=== PATIENT | female | born 1965 | race Two or more races ===

== ENCOUNTER 2020-06-04 08:53 | Day surgery (SDC) | payer MEDICAID, SELFPAY ==
[2020-06-01 14:25] VITALS: BMI 49.9
--- NOTE | 2020-06-03 09:59 | P.CONAN_ITS ---
HPI - Anesthesia Eval Consult details Narrative: 54yo F for Upper Endoscopy and Colonoscopy [facility] Past Medical History Medical History Anemia Anxiety Asthma Constipation GERD (gastroesophageal reflux disease) Hx of alopecia Hx of renal calculi Surgical History Surgical History Hx of section Hx of foot surgery Social History Social History Alcohol intake: current Alcohol intake frequency: a few times a month Alcohol type: wine Smoking Status: Never smoker Substance Use Type: Marijuana Meds Allergies Allergy/AdvReac Type Severity Reaction Status Date / Time No Known Allergies Allergy Mild NOT Unverified 06/01/20 14:20 APPLICABLE Home Medications Medication Instructions Recorded Confirmed Type albuterol sulfate [ProAir HFA] 2 puff INHALATION Q4-6H PRN 06/01/20 06/11/20 History ferrous sulfate [iron] 325 mg PO DAILY 06/01/20 06/11/20 History fluticasone propionate [Flovent] 1 puff INHALATION Q12H 06/01/20 06/11/20 History loratadine 10 mg PO DAILY 06/01/20 06/11/20 History losartan 25 mg PO DAILY 06/01/20 06/11/20 History omeprazole 20 mg PO BID 06/01/20 06/11/20 History Exam Exam Date and Time: June 03, 2020 0959 Height,Weight and Vital Signs: Height 5 ft 5 in Weight 136.078 kg Pertinent Lab Results Pertinent Lab Results: Laboratory Tests 01/30/20 01/30/20 13:41 13:41 WBC 4.9 Hgb 10.2 L Hct 34.1 L Plt Count 326 Sodium 141 Potassium 4.5 D Chloride 106 BUN 7 L Creatinine 0.63 Assessment and Plan Assessment Anesthesia Assessment: Chart Reviewed
[2020-06-04] VITALS (7 sets, daily range): BP systolic 111–153; BP diastolic 74–109; PULSE 87–100; RESP 18; TEMP 36.2–36.8; O2SAT 97–100
--- NOTE | 2020-06-04 09:54 | HO.ANESPROP2 ---
[facility] Past Medical History Medical History Anemia Anxiety Asthma Constipation GERD (gastroesophageal reflux disease) Hx of alopecia Hx of renal calculi Surgical History Surgical History Hx of section Hx of foot surgery Social History Social History Alcohol intake: current Alcohol intake frequency: a few times a month Alcohol type: wine Smoking Status: Never smoker Substance Use Type: Marijuana Advance Directives: No Advance Directives Information Provided: No Advance Directives on File: No Meds Allergies Allergy/AdvReac Type Severity Reaction Status Date / Time No Known Allergies Allergy Mild NOT Unverified 06/01/20 14:20 APPLICABLE Home Medications Medication Instructions Recorded Confirmed Type albuterol sulfate [ProAir HFA] 2 puff INHALATION Q4-6H PRN 06/01/20 06/01/20 History ferrous sulfate [iron] 325 mg PO DAILY 06/01/20 06/01/20 History fluticasone propionate [Flovent] 1 puff INHALATION Q12H 06/01/20 06/01/20 History loratadine 10 mg PO DAILY 06/01/20 06/04/20 History losartan 25 mg PO DAILY 06/01/20 06/04/20 History omeprazole 20 mg PO BID 06/01/20 06/04/20 History Exam Exam Date and Time: June 04, 2020 0954 Height,Weight and Vital Signs: Height 5 ft 5 in Weight 136.078 kg Last Vital Signs Temp 97.1 F 06/04/20 09:49 Pulse 87 06/04/20 09:49 Resp 18 06/04/20 09:49 BP 144/81 H 06/04/20 09:49 Pulse Ox 97 06/04/20 09:49
--- NOTE | 2020-06-04 10:06 | MHC.SHP ---
Pre-Procedural Eval Section B Chief Complaint: ANEMIA Relevant Family History (Specify if Yes): No Relevant Social History: None Present Medications: see Short Stay Collaborative assessment Medical History: Significant History (Anemia Anxiety Asthma Constipation GERD (gastroesophageal reflux disease) Hx of alopecia Hx of renal calculi) History of Previous Operations: Relevant previous surgery/procedure and date(s) (foot surgery, c section) Allergies: Allergies Allergy/AdvReac Type Severity Reaction Status Date / Time No Known Allergies Allergy Mild NOT Unverified 06/01/20 14:20 APPLICABLE Review of Systems Sugical H&P ROS: Negative: Constitution, Cardiovascular, Respiratory, Neurological, Psychiatric, Hem-Onc, Allergic/Immunologic, Gastrointestinal, Genitourinary, Musculoskeletal, Integumentary, Endocrine and Eyes/Ears/Nose/Throat Exam Surgical H&P Exam: Normal: HEENT, Normal: Heart, Normal: Lungs, Normal: Extremities, Normal: Abdomen, Normal: Skin and Normal: Neurological Plan Diagnosis/Plan: Unchanged Patient has been examined and remains a candidate for the planned procedure
--- NOTE | 2020-06-04 10:07 | PM.OP ---
Brief Operative Note Date of Service: 06/04/20 Pre-op diagnosis: anemia Post-op diagnosis: same Procedure: see op note Surgeon: Brijesh Jasso MD Anesthesia: MAC Estimated blood loss (mL): 0 Condition: stable Disposition: PACU
--- NOTE | 2020-06-04 10:08 | P.OP_ITS ---
Operative Note Operative Note Date of Service: 06/04/20 Narrative: Operative Information Procedure Description: EGD, Colonoscopy FLEXIBLE TRANSORAL UPPER GASTROINTESTINAL ENDOSCOPY AND COLONOSCOPY PROCEDURE NOTE UPPER ENDOSCOPY Consent: Indications for the procedure and potential complications of bleeding, perforation, reaction to medications and missed diagnosis were discussed with the patient and informed consent was obtained. Instrument: Olympus GIF H 190 J mid size upper endoscope Monitoring: Vital signs and clinical assessment, continuous EKG monitoring, Pulse oximetry, Carbon Dioxide monitoring and blood pressure monitoring were done throughout the procedure. Procedure: The patient was placed in the left lateral decubitis position and pre-procedure medications were administered and a bite block was placed. The endoscope was inserted into the mouth and advanced under direct vision to the third part of duodenum. A careful inspection was made as the upper endoscope was withdrawn including a retroflexed examination of the proximal stomach; Findings and interventions are described below. Findings: Larynx:normal Esophagus: GE junction at 36 cm, diaphragm hiatus at 33 cm consistent with 3 cm sliding hiatal hernia, normal mucosa-random bx taken Stomach: Patchy erythema. Biopsies were obtained. Grade 2 flap valve on retroflexed examination of the cardia. Duodenum: Normal bulb and descending duodenum, bx taken Intervention: Biopsies as noted above COLONOSCOPY Instrument: Olympus variable stiffness pediatric scope 190L Colonoscopy Monitoring: Vital signs and clinical assessment, continuous EKG monitoring, Pulse oximetry, Carbon Dioxide monitoring and blood pressure monitoring were done throughout the procedure. Colon withdrawal time was 10 minutes. Procedure: The patient was placed in the left lateral decubitis position and pre-procedure medications were administered. After a digital rectal examination of the ano-rectum, the video colonoscope was inserted into the rectum and advanced through the colon to the cecum/TI. The colonoscope was slowly withdrawn in a retrograde panoramic fashion and the colon mucosa was carefully examined including a retroflexed view of the rectum. Findings and interventions are described below. Procedure Difficulty: Findings: Terminal Ileum-normal Cecum:normal Ascending Colon: normal Transverse Colon -normal Descending Colon:normal Sigmoid Colon: 3-4 mm diminutive polyp biopsy excised, there was also a 12-15 mm semi pedunculated polyp noted removed with cold snare, the head of the polyp was red and inflammed possibly had been bleeding recently Rectum: Retroflexion with small to moderate sized internal hemorrhoids, grade I Anorectum - normal Colon preparation: Carver Bowel Preparation Scale Right colon; 3 Transverse colon: 3 Left colon; 3 (0 = Unprepared colon segment with mucosa not seen due to solid stool that cannot be cleared. 1 = Portion of mucosa of the colon segment seen, but other areas of the colon segment not well seen due to staining, residual stool and/or opaque liquid. 2 = Minor amount of residual staining, small fragments of stool and/or opaque liquid, but mucosa of colon segment seen well. 3 = Entire mucosa of colon segment seen well with no residual staining, small fragments of stool or opaque liquid) Impression and Post Procedure Diagnosis: Endoscopy Findings: gastritis hiatal hernia Colonoscopy Findings: polyps internal hemorrhoids Plan: Await Pathology results Repeat Colonoscopy in 3-5 years if adenomatous polyps or earlier if clinically indicated, otherwise repeat 10 years if benign High fiber diet leaflet avoid straining at stool, epsom salts and sitz bath, anusol supps or cream prn if anemia persists or worsens and bx neg then capsule endoscopy Above findings were reviewed with the patient and relevant handouts were provided if indicated.
--- NOTE | 2020-06-04 10:16 | P.CONAN_ITS ---
[facility] Past Medical History Medical History Anemia Anxiety Asthma Constipation GERD (gastroesophageal reflux disease) Hx of alopecia Hx of renal calculi Surgical History Surgical History Hx of section Hx of foot surgery Social History Social History Alcohol intake: current Alcohol intake frequency: a few times a month Alcohol type: wine Smoking Status: Never smoker Substance Use Type: Marijuana Advance Directives: No Advance Directives Information Provided: No Advance Directives on File: No Meds Allergies Allergy/AdvReac Type Severity Reaction Status Date / Time No Known Allergies Allergy Mild NOT Unverified 06/01/20 14:20 APPLICABLE Home Medications Medication Instructions Recorded Confirmed Type albuterol sulfate [ProAir HFA] 2 puff INHALATION Q4-6H PRN 06/01/20 06/01/20 History ferrous sulfate [iron] 325 mg PO DAILY 06/01/20 06/01/20 History fluticasone propionate [Flovent] 1 puff INHALATION Q12H 06/01/20 06/01/20 History loratadine 10 mg PO DAILY 06/01/20 06/04/20 History losartan 25 mg PO DAILY 06/01/20 06/04/20 History omeprazole 20 mg PO BID 06/01/20 06/04/20 History Exam Exam Date and Time: June 04, 2020 1016 Height,Weight and Vital Signs: Height 5 ft 5 in Weight 136.078 kg Last Vital Signs Temp 97.1 F 06/04/20 09:49 Pulse 87 06/04/20 09:49 Resp 18 06/04/20 09:49 BP 144/81 H 06/04/20 09:49 Pulse Ox 97 06/04/20 09:49 Airway Mallampati Class: II TM Dist: >3cm Neck ROM: Limited Heart: RRR Lungs: CTA Assessment and Plan Assessment Anesthesia Assessment: Anesthesia Plan Discussed and Chart Reviewed Final Anesthetic Review NPO: Yes ASA Class: III Final Preanesthetic Review: Meds/Allgs Chart Reviewed, Consent Obtained/Reviewed and Anes Risks/Benef Reviewed Patient Risk: Intermediate Procedure Risk: Intermediate Anesthetic Plan Anesthetic Plan: MAC: Disposition: Standard PACU
== END 2020-06-04 13:10 | disposition home or self-care (01) ==
PROVIDERS: PCP Student in an Organized Health Care Education/Training Program; Visit Provider Internal Medicine Gastroenterology
PROC: (CPT 45385; principal; 2020-06-04 09:30)
DX: D64.9 Anemia, unspecified (principal); D12.5 Benign neoplasm of sigmoid colon; K64.0 First degree hemorrhoids; K29.50 Unspecified chronic gastritis without bleeding; K44.9 Diaphragmatic hernia without obstruction or gangrene; K21.9 Gastro-esophageal reflux disease without esophagitis; Z79.899 Other long term (current) drug therapy
CPT/HCPCS: 45385; 45380; 43239; 88305; 88342; J1200; J2250; J2405; J2765

== ENCOUNTER 2020-06-05 14:07 | Outpatient (REF) | payer MEDICAID, SELFPAY ==
--- NOTE | 2020-06-05 | MM_ITS ---
EXAMINATION: BONE DENSITOMETRY CLINICAL INDICATION: Pathological fracture, other site, initial encounter for fracture. Screening for osteoporosis. COMPARISON: None (current study represents initial baseline exam). TECHNIQUE: Using a [employer] DXA System (software version: 13.1) manufactured by [employer], dual-energy x-ray absorptiometry was performed of the lumbar spine and left hip. The images are of good technical quality. Summary results are attached. FINDINGS: AP SPINE L1-L4: BMD 1.149 g/cm2, Z-score -0.6, T-score -0.3, normal. LEFT FEMUR, NECK: BMD 0.892 g/cm2, Z-score -0.7, T-score -1.1, osteopenia. LEFT FEMUR, TOTAL: BMD 1.048 g/cm2, Z-score 0.2, T-score 0.3, normal. IDENTIFIED RISK FACTORS: Recurrent falls, history of fracture (adult), menopause. HISTORY OF FRACTURE: Right ankle, left foot. MEDICATIONS: None listed. MM/XR DEXA axial skeleton IMPRESSION: 1. DIAGNOSIS: Osteopenia based on the lowest T-score value of -1.1 in the femoral neck applying World Health Organization criteria. 2. 10-YEAR FRACTURE RISK PREDICTION, FRAX: Major osteoporotic fracture (clinical spine, forearm, hip or shoulder) 2.7%. Hip fracture 0.1%. 3. Treatment Recommendations: NOF guidelines recommend consideration for treatment in postmenopausal women and men age 50 and older presenting with the following: -A hip or vertebral (clinical or morphometric) fracture. -T-score less than or equal to -2.5 at the femoral neck or spine after appropriate evaluation to exclude secondary causes. -Low bone mass at the hip or spine and a 10-year fracture probability by FRAX of greater than or equal to 3% for hip fracture or greater than or equal to 20% for major osteoporotic fracture based on the [place] adapted WHO algorithm. 4. Other Recommendations: All treatment decisions require clinical judgment and consideration of individual patient factors, including patient preferences, comorbidities, previous drug use, risk factors not captured in the FRAX model (e.g. frailty, falls, vitamin D deficiency, increased bone turnover, interval significant decline in bone density) and possible under or overestimation of fracture risk by FRAX. Additional medical evaluation for secondary cause of low bone mineral density may be appropriate. FUTURE SCAN RECOMMENDATION: People with diagnosed cases of osteoporosis or at high risk for fracture should have regular bone mineral density tests. For patients eligible for Medicare, routine testing is allowed once every 2 years. The testing frequency can be increased to one year for patients who have rapidly progressing disease, those who are receiving or discontinuing medical therapy to restore bone mass, or have additional risk factors.
--- NOTE | 2020-06-05 | MM_ITS ---
EXAMINATION: MM SCREENING DIGITAL BREAST TOMOSYNTHESIS, BILATERAL CLINICAL INFORMATION: Screening. Asymptomatic. The lifetime risk of breast cancer based on the Tyrer-Cuzick Model is 5.6%. COMPARISON: Mammography: January 12, 2012 and studies dating back to February 26, 2008 TECHNIQUE: Digital breast tomosynthesis is performed in both the craniocaudal and mediolateral oblique views along with computer-aided detection (CAD). Synthesized 2D images are generated from the tomosynthesis. FINDINGS: The breasts are heterogeneously dense, which may obscure small masses (ACR BI-RADS breast composition Category c). There are no significant masses, abnormal calcifications, or other abnormalities. There are multiple bilateral circumscribed densities with multiple cysts being shown previously. There is multiplicity and bilaterality of calcifications. MM/MM tomosynthesis screening BI IMPRESSION: No specific mammographic evidence to suggest malignancy. Numerous cysts. ASSESSMENT: BI-RADS 2: Benign RECOMMENDATION: Routine annual mammography screening. This patient's information was entered into a reminder system with a target due date for their next mammogram.
== END 2020-06-05 14:08 | disposition home or self-care (01) ==
LOC: HO.MAMMO 14:07
PROVIDERS: PCP Student in an Organized Health Care Education/Training Program; Visit Provider Student in an Organized Health Care Education/Training Program
DX: Z12.31 Encounter for screening mammogram for malignant neoplasm of breast (principal); Z13.820 Encounter for screening for osteoporosis; N95.1 Menopausal and female climacteric states; Z87.311 Personal history of (healed) other pathological fracture; Z91.81 History of falling
CPT/HCPCS: 77063; 77067; 77080

== ENCOUNTER → 2020-06-11 08:38 | Outpatient (BNVA) | payer MEDICAID, SELFPAY | PROVIDERS: PCP Student in an Organized Health Care Education/Training Program; Referring Provider Student in an Organized Health Care Education/Training Program; Visit Provider Physician Assistant | DX: Z76.89 Persons encountering health services in other specified circumstances (principal) ==

== ENCOUNTER 2020-08-24 11:15 | Outpatient (REF) | payer MEDICAID, SELFPAY | END 2020-08-24 11:16 | disposition home or self-care (01) | LOC: HO.LAB 11:15 | PROVIDERS: Visit Provider Internal Medicine | DX: Z20.822 Contact with and (suspected) exposure to COVID-19 (principal) | CPT/HCPCS: 36415; C9803; U0003; U0005 ==

== ENCOUNTER 2020-11-11 13:31 | Emergency (ER) | payer MEDICAID, SELFPAY ==
[2020-11-11 13:47] VITALS: BP 149/83; PULSE 89; RESP 18; TEMP 36.4; O2SAT 98; BMI 34.9
--- NOTE | 2020-11-11 15:47 | ED.GENADULT ---
HPI - General Adult General Chief complaint: Extremity Injury, Lower Stated complaint: R ELBOW PAIN Time Seen by Provider: 11/11/20 14:12 Source: patient Mode of arrival: ambulatory History of Present Illness HPI narrative: 55-year-old female with a past medical history of anemia, anxiety, asthma, constipation, GERD, presenting to the ED complaining of acute on chronic right wrist pain due to carpal tunnel syndrome. Reports pain became unbearable today. Admits to [place] of [place]pal [place] sd[place] [facility] [place] was diagnosed with the same on the RUE, however has not followed up with surgeon/orthopedics. Does wear braces at home at night, denies taking any pain medication. Reports tingling in fingertips and pain worse with hand/wrist movement. Denies weakness, fever, chills, trauma/injury, swelling, CP/SPB Related Data Home Medications Medication Instructions Recorded Confirmed albuterol sulfate [ProAir HFA] 2 puff INHALATION Q4-6H PRN 06/01/20 06/11/20 ferrous sulfate [iron] 325 mg PO DAILY 06/01/20 06/11/20 fluticasone propionate [Flovent] 1 puff INHALATION Q12H 06/01/20 06/11/20 loratadine 10 mg PO DAILY 06/01/20 06/11/20 losartan 25 mg PO DAILY 06/01/20 06/11/20 omeprazole 20 mg PO BID 06/01/20 06/11/20 Previous Rx's Medication Instructions Recorded acetaminophen [Tylenol Extra 500 mg PO Q6H PRN #20 tab 11/11/20 Strength] lidocaine [Lidoderm] 1 patch TOPICAL DAILY PRN #30 ea 11/11/20 MDD remove after 12 hours naproxen 500 mg PO BID PRN 10 Days #20 tab 11/11/20 Allergies Allergy/AdvReac Type Severity Reaction Status Date / Time No Known Allergies Allergy Mild NOT Verified 11/11/20 13:49 APPLICABLE Review of Systems Review of Systems: Constitutional: No Fever, No Chills Cardiovascular: No Chest Pain, No SOB Musculoskeletal: +joint pain, No Myalgias, No Joint Swelling Skin: No Skin Lesions, No rash Neuro: No Weakness, + Numbness, + Paresthesias Yes all other systems are reviewed and are negative PMFSH Past Medical History Attestation statement: The following information was validated with the patient. Medical History Anemia Anxiety Asthma Constipation GERD (gastroesophageal reflux disease) Hx of alopecia Hx of renal calculi Surgical History Hx of section Hx of foot surgery Social History Social History Alcohol intake: current Alcohol intake frequency: a few times a month Alcohol type: wine Smoking Status: Never smoker Substance Use Type: Marijuana Advance Directives: No Advance Directives Information Provided: No Patient : No Physical Exam Vital Signs: Vital Signs: Last Vital Signs Temp 97.5 F 11/11/20 13:47 Pulse 89 11/11/20 13:47 Resp 18 11/11/20 13:47 BP 149/83 H 11/11/20 13:47 Pulse Ox 98 11/11/20 13:47 Body Mass Index 34.9 Const: General: cooperative and healthy appearing Orientation/consciousness: patient oriented x3 Limitations: no limitations HENMT: Head: Yes normal to inspection Ears: hearing grossly normal bilaterally General nose exam: Normal external nose present Face and sinus: Yes normal facial exam Eyes: General: appearance normal, both eyes and all related structures EOM: EOMs intact bilaterally Neck: Neck: Yes normal visual inspection and Yes no meningeal signs Resp: Effort & Inspection: normal respiratory effort Cardio: Rate: regular rate Peripheral pulses: radial pulses present Skin: Rashes: no rashes Wounds: no wounds Neuro: General: patient oriented x3 and no meningeal signs Gait exam (Neuro): Normal gait present Extrem: Other: Right wrist with mild tenderness to palpation. No appreciable deformity/swelling or erythema. FROM intact to digits and wrist. NV intact General: Yes normal to inspection Medical Decision Making MDM Narrative Medical decision making narrative: 55-year-old female with a past medical history of anemia, anxiety, asthma, constipation, GERD, presenting to the ED complaining of acute on chronic right wrist pain due to carpal tunnel syndrome. On exam VSS, NAD/well-appearing, systems likely from carpal tunnel syndrome as patient with known diagnosis. Unlikely fracture/dislocation or ACS Discharge Plan Discharge Clinical Impression: Acute carpal tunnel syndrome Qualifiers: Laterality: right Qualified Code(s): G56.01 - Carpal tunnel syndrome, right upper limb Patient Disposition: Home, Self-Care Instructions: Carpal Tunnel Surgery (DC) Additional Instructions: You likely carpal tunnel syndrome, it is important for you to follow-up with an orthopedic/Plastic surgery in. Wear braces at home at night especially during sleep. Naproxen as an anti-inflammatory/pain medication, take with food. Lidoderm patches or numbing patches, apply to painful area. You may apply cyst and heat. If pain persists or worsens/becomes unbearable please return to the ED, others follow-up with her doctor Es probable que tenga s?ndrome del t?leticia carpiano, es importante que realice un seguimiento con juan francisco cirug?a ortop?dica / pl?stica. Use aparatos ortop?dicos en casa por la noche, especialmente charley el chloe?o. El naproxeno tali medicamento antiinflamatorio / analg?sico, t?arboleda con alimentos. Los parches de Lidoderm o los parches adormecedores se aplican en el ?lucila dolorida. Puede aplicar quiste y calor. Si el dolor persiste o empeora / se vuelve insoportable, regrese al servicio de urgencias, otros hacen un seguimiento con murphy m?dico. Prescriptions: New acetaminophen [Tylenol Extra Strength] 500 mg tablet 500 mg PO Q6H PRN (Reason: pain or fever) Qty: 20 RF: 0 lidocaine [Lidoderm] 5 % adhesive patch,medicated 1 patch topical DAILY MDD remove after 12 hours PRN (Reason: pain) Qty: 30 RF: 0 naproxen 500 mg tablet 500 mg PO BID PRN (Reason: pain) 10 Days Qty: 20 RF: 0 No Action losartan 25 mg Tablet 25 mg PO DAILY RF: 0 albuterol sulfate [ProAir HFA] 90 mcg/actuation Hfa Aerosol Inhaler 2 puff INHALATION Q4-6H PRN (Reason: Shortness Of Breath Or Wheezing) RF: 0 loratadine 10 mg Tablet 10 mg PO DAILY RF: 0 Flovent 110 mcg/actuation Hfa Aerosol Inhaler 1 puff INHALATION Q12H RF: 0 omeprazole 20 mg Tablet,Delayed Release (Dr/Ec) 20 mg PO BID RF: 0 ferrous sulfate [iron] 325 mg (65 mg iron) Tablet 325 mg PO DAILY RF: 0 Referrals: Beka Palmer PA-C [Physician Ink Grinder] - 1 week Stand Alone Forms: Work/School Release Print Language: Mohawk
== END 2020-11-11 16:14 | disposition home or self-care (01) ==
PROVIDERS: Emergency Provider Emergency Medicine Emergency Medical Services
DX: G56.01 Carpal tunnel syndrome, right upper limb (principal); M25.531 Pain in right wrist
CPT/HCPCS: 99283

== ENCOUNTER 2022-04-07 13:21 | Emergency (ER) | payer MEDICAID, SELFPAY ==
[2022-04-07 15:12] VITALS: BP 175/91; PULSE 84; RESP 20; TEMP 36.6; O2SAT 99; BMI 34.9
== END 2022-04-08 00:53 | disposition left against medical advice (07) ==
LOC: HO.ED 04-08 00:36
PROVIDERS: Emergency Provider Emergency Medicine
DX: M54.50 Low back pain, unspecified (principal)
CPT/HCPCS: 99281

== ENCOUNTER 2022-06-28 09:59 | Emergency (ER) | payer MEDICAID, SELFPAY ==
[2022-06-28 10:52] VITALS: BP 178/94; PULSE 91; RESP 18; TEMP 36.6; O2SAT 98; BMI 38.8
[2022-06-28 11:19] LABS: Appearance Urine Clear; Color Urine Yellow; Glucose Urine UA Negative (Negative); Leukocyte Esterase Urine Negative (Negative); Nitrite Urine Negative (Negative); PH 7.5 (5.0-9.0); Specific Gravity - Urine <= 1.005 (1.005-1.025); Urine Blood Negative (Negative); Urine Ketones Negative (Negative); Urine Protein Negative (Neg-Trace)
--- NOTE | 2022-06-28 12:29 | ED.BACK ---
HPI - Back Pain/Injury General Chief Complaint: Back Pain/Injury Stated Complaint: Lower back pain Time Seen by Provider: 06/28/22 12:28 Source: patient Mode of arrival: ambulatory Limitations: no limitations History of Present Illness HPI Narrative: 57 yo female with history of obesity and chronic back pain for the last year presents to the ER for worsening pain for the last few days. 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 She states the pain is across her entire lower back and radiates up her back with movement. She states the pain morrell and is sharp. She denies any urinary symptoms, no numbness or weakness in the legs. She has not seen her PCP in a long time, she has not been available per patient. MD elicited complaint: back pain Pertinent past history: prior back pain Onset (ago): year(s) (1) Timing: progressively worsening Severity: severe Similar Symptoms Previously: Yes Quality: burning Location: right lower back and left lower back Radiation: none Exacerbating factors: movement Relieving factors: sitting upright Context: while lifting, turning/twisting and bending Associated symptoms: denies other symptoms Treatments prior to arrival: NSAIDS Work related injury: Yes Related Data Home Medications Medication Instructions Recorded Confirmed albuterol sulfate 90 mcg/actuation 2 puff inhalation Q4-6H PRN 06/01/20 06/11/20 aerosol inhaler (ProAir HFA) Shortness Of Breath Or Wheezing ferrous sulfate 325 mg (65 mg 325 mg PO DAILY 06/01/20 06/11/20 iron) tablet (iron) fluticasone propionate 110 1 puff inhalation Q12H 06/01/20 06/11/20 mcg/actuation HFA aerosol inhaler loratadine 10 mg tablet 10 mg PO DAILY 06/01/20 06/11/20 losartan 25 mg tablet 25 mg PO DAILY 06/01/20 06/11/20 omeprazole 20 mg tablet,delayed 20 mg PO BID 06/01/20 06/11/20 release Previous Rx's Medication Instructions Recorded acetaminophen 500 mg tablet 500 mg PO Q6H PRN pain or fever 11/11/20 (Tylenol Extra Strength) #20 tabs lidocaine 5 % topical patch 1 patch topical DAILY PRN pain #30 11/11/20 (Lidoderm) ea naproxen 500 mg tablet 500 mg PO BID PRN pain 10 days #20 11/11/20 tabs Allergies Allergy/AdvReac Type Severity Reaction Status Date / Time No Known Allergies Allergy Mild NOT Verified 11/11/20 13:49 APPLICABLE Review of Systems Review of Systems: Constitutional: No Fever, No Chills Cardiovascular: No Chest Pain, No SOB Respiratory: No Cough, No Sputum Gastrointestinal: No Nausea, No Vomiting, No Diarrhea, No abdominal Pain Genitourinary: No Dysuria, No Urinary Frequency, No Hematuria Musculoskeletal: + joint pain, + Myalgias Skin: No Skin Lesions, No rash Neuro: No Weakness, No Numbness, No Dizziness, No Headache Psych: + Anxiety/Panic, + Depression Heme/Lymph: No Bruising, No Lymphadenopathy PMFSH Past Medical History Medical History Anemia Anxiety Asthma Constipation GERD (gastroesophageal reflux disease) Hx of alopecia Hx of renal calculi Surgical History Hx of section Hx of foot surgery Social History Social History Alcohol intake: current Alcohol intake frequency: a few times a month Alcohol type: wine Substance Use Type: Marijuana Advance Directives: No Advance Directives Information Provided: No Physical Exam Vital Signs: Vital Signs: Last Vital Signs Temp 97.8 F 06/28/22 10:52 Pulse 91 06/28/22 10:52 Resp 18 06/28/22 10:52 BP 178/94 H 06/28/22 10:52 Pulse Ox 98 06/28/22 10:52 O2 Del Method 06/28/22 10:52 BMI result Body Mass Index 38.8 Appearance: Alert. Oriented X3. No acute distress. HEENT: normal inspection CVS: Normal heart rate and rhythm. Pulses normal. Respiratory: No respiratory distress. Skin: Skin warm and dry. Normal skin color. Normal skin turgor. No rashes. Back: normal inspection, soft tissue tenderness across the entire lumbar area and paraspinous muscle tenderness. Extremities: normal inspection, normal ROM Neuro: Oriented X 3. No motor deficit. No sensory deficit. Normal DTRS, steady gait Course Course Course Narrative: 57 yo female presenting with acute on chronic low back pain. No red flag symptoms of LBP. Exam with soft tissue tenderness and spasm up into the paraspinous muscles. no midline tenderness. No urinary symptoms. UA negative. Will treat for muscular pain, have her call her PCP for outpatient follow up, would likely benefit from PT. 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 Medical Decision Making Lab Data Labs: Lab Results 06/28/22 Range/Units 11:07 Urine Color Yellow Urine Appearance Clear Urine pH 7.5 (5.0-9.0) Ur Specific Elizabeth <= 1.005 (1.005-1.025) Urine Protein Negative (Neg-Trace) mg/dL Urine Glucose (UA) Negative (Negative) mg/dL Urine Ketones Negative (Negative) mg/dL Urine Blood Negative (Negative) Urine Nitrite Negative (Negative) Ur Leukocyte Esterase Negative (Negative) Discharge Plan Discharge Clinical Impression: Chronic bilateral low back pain Patient Disposition: Home, Self-Care Instructions: Chronic Back Pain (DC), Lower Back Exercises (ED) Additional Instructions: No bending, lifting or twisting. Use ice several times per day for 20 minutes at a time for the next 48 hours and then change to heat. Take medications as prescribed to help with pain and discomfort. Follow up with your Primary Care Doctor this week. If your pain worsens, if you develop new numbness, tingling, weakness, loss of function or incontinence call 911 or come back to the ER right away for evaluation. Sin doblar, levantar o torcer. Use hielo varias veces al d?a charley 20 minutos a la vez charley las pr?ximas 48 horas y luego cambie a calor. Chili los medicamentos seg?n lo prescrito para ayudar con el dolor y la incomodidad. Cr un seguimiento con murphy m?dico de atenci?n primaria esta semana. Si murphy dolor empeora, si desarrolla un nuevo entumecimiento, hormigueo, debilidad, p?rdida de funci?n o incontinencia, llame al 911 o regrese a la nakia de emergencias de inmediato para juan francisco evaluaci?n. Prescriptions: No Action losartan 25 mg Tablet 25 mg PO DAILY albuterol sulfate [ProAir HFA] 90 mcg/actuation Hfa Aerosol Inhaler 2 puff INHALATION Q4-6H PRN (Reason: Shortness Of Breath Or Wheezing) loratadine 10 mg Tablet 10 mg PO DAILY Flovent 110 mcg/actuation Hfa Aerosol Inhaler 1 puff INHALATION Q12H omeprazole 20 mg Tablet,Delayed Release (Dr/Ec) 20 mg PO BID ferrous sulfate [iron] 325 mg (65 mg iron) Tablet 325 mg PO DAILY acetaminophen [Tylenol Extra Strength] 500 mg tablet 500 mg PO Q6H PRN (Reason: pain or fever) Qty: 20 0RF lidocaine [Lidoderm] 5 % adhesive patch,medicated 1 patch topical DAILY MDD remove after 12 hours PRN (Reason: pain) Qty: 30 0RF Rx Instructions: leave on most painful area for up to 12 hrs naproxen 500 mg tablet 500 mg PO BID PRN (Reason: pain) 10 Days Qty: 20 0RF Referrals: Lindsay Serrano MD [Primary Care Provider] - (acute on chronic low back pain) Stand Alone Forms: Work/School Release Interventions: ED Discharge Assessment Last Done: 06/28/22 13:46 Discharge Date/Time: 06/28/22 13:48 Print Language: Maltese
== END 2022-06-28 13:48 | disposition home or self-care (01) ==
PROVIDERS: Emergency Provider Student in an Organized Health Care Education/Training Program; PCP Student in an Organized Health Care Education/Training Program
DX: M54.50 Low back pain, unspecified (principal); Z79.899 Other long term (current) drug therapy
CPT/HCPCS: 81003; 99283

== ENCOUNTER 2023-02-02 09:57 | Outpatient (REF) | payer MEDICAID, SELFPAY ==
[2023-02-02 15:13] LABS: Alanine Aminotransferase 19 U/L (0-31); Albumin Level 4.1 g/dL (3.5-5.0); Alkaline Phosphatase 75 U/L (39-117); Anion Gap 15 (12-20); Aspartate Amino Transferase 15 U/L (5-31); Bilirubin Direct 0.2 mg/dL (0.0-0.5); Bilirubin Total 0.4 mg/dL (0.0-1.0); Blood Urea Nitrogen 14 mg/dL (9-16); Calcium 9.4 mg/dL (8.4-10.2); Carbon Dioxide 25 mmol/L (22-29); Chloride 105 mmol/L (96-108); Cholesterol 214 mg/dL; Estimated Glomerular Filt Rate > 60; Glucose Fasting 80 mg/dL (60-99); HDL Cholesterol 68 mg/dL; LDL Cholesterol Calculated 131 mg/dl; Potassium 4.2 mmol/L (3.3-5.1); Sodium 141 mmol/L (135-145); Total Protein 7.6 g/dL (6.5-8.0); Triglycerides 78 mg/dL
== END 2023-02-02 09:58 | disposition home or self-care (01) ==
LOC: HO.CHCLDS 09:57
PROVIDERS: Visit Provider Student in an Organized Health Care Education/Training Program
DX: I10 Essential (primary) hypertension (principal)
CPT/HCPCS: 36415; 80048; 80061; 80076

== ENCOUNTER 2023-02-28 11:52 | Outpatient (REF) | payer MEDICAID, SELFPAY ==
[2023-03-01 07:37] LABS: Syphilis Screen Nonreactive (Nonreactive)
[2023-03-01 08:05] LABS: HBS Num1 97.96 mIU/mL (0-7.99); HBc Num1 0.12 S/CO (0.00-0.79); HBsAGNum1 0.39 S/CO (0.00-0.99); HIV AB/AG Nonreactive (Nonreactive); HIV Num 1 0.05 S/CO (0.00-0.99); Hepatitis B Core Antibody Nonreactive (Nonreactive); Hepatitis B Surface Antigen Negative (Negative); ~Hepatitis B Surface Antibody REACTIVE (Nonreactive)
[2023-03-01 08:15] LABS: ~HepC Num1 0.07 S/CO (0.00-0.79); ~Hepatitis C Antibody Nonreactive (Nonreactive)
[2023-03-03 21:59] LABS: HPV mRNA E6/E7 rflx Not Detected (Not Detected)
== END 2023-02-28 11:53 | disposition home or self-care (01) ==
LOC: HO.CHCLDS 11:52
PROVIDERS: Visit Provider Advanced Practice Midwife
DX: Z11.3 Encounter for screening for infections with a predominantly sexual mode of transmission (principal)
CPT/HCPCS: 36415; 86704; 86706; 86780; 86803; 87340; 87389; 87624; 88142

== ENCOUNTER 2023-03-01 14:14 | Outpatient (REF) | payer MEDICAID, SELFPAY ==
--- NOTE | ~2023-03-01 | MM_ITS ---
EXAMINATION: MM DIAGNOSTIC DIGITAL BREAST TOMOSYNTHESIS, BILATERAL CLINICAL INFORMATION: Patient complaining of right breast pain, and thickness at 11:00 near the areola. Patient also due for bilateral screening. COMPARISON: Mammography: 06/05/2020, and dating back to 2011. Bilateral breast ultrasound 2007. TECHNIQUE: Digital breast tomosynthesis is performed in both the craniocaudal and mediolateral oblique views along with computer-aided detection (CAD). Synthesized 2D images are generated from the tomosynthesis. FINDINGS: The breasts are heterogeneously dense, which may obscure small masses (ACR BI-RADS breast composition Category c). There are circumscribed isodense round and oval masses in both breasts, consistent with known cysts. These appear to be waxing and waning over time. These findings are benign. In addition, scattered global calcifications bilaterally are present, stable and also benign. No aggressive changes. Otherwise, no findings suspicious for malignancy. No skin changes. No mammographic abnormality to explain right breast periareolar pain at 11:00 with thickness. Recommend evaluating with ultrasound. MM/MM tomosynthesis diagnostic BI IMPRESSION: No mammographic evidence of malignancy in either breast. No mammographic abnormality or correlate to the region of right breast thickness and pain at the 11:00 axis near the areola. This will be evaluated with targeted right breast ultrasound. ASSESSMENT: BI-RADS BI-RADS 0 - Incomplete: Needs additional Imaging. RECOMMENDATION: Additional Imaging required
== END 2023-03-01 14:15 | disposition home or self-care (01) ==
LOC: HO.MAMMO 14:14
PROVIDERS: PCP Student in an Organized Health Care Education/Training Program; Visit Provider Internal Medicine
DX: Z12.31 Encounter for screening mammogram for malignant neoplasm of breast (principal)
CPT/HCPCS: 77062; 77063; 77066; 77067

== ENCOUNTER → 2023-03-01 14:15 | Outpatient (BNV) | payer MEDICAID, SELFPAY | PROVIDERS: PCP Student in an Organized Health Care Education/Training Program; Visit Provider Radiology Diagnostic Radiology | DX: R92.1 Mammographic calcification found on diagnostic imaging of breast (principal) | CPT/HCPCS: 77062; 77066 ==

== ENCOUNTER → 2023-03-09 15:30 | Outpatient (BNV) | payer MEDICAID, SELFPAY | PROVIDERS: PCP Student in an Organized Health Care Education/Training Program; Visit Provider Radiology Diagnostic Radiology | DX: N63.11 Unspecified lump in the right breast, upper outer quadrant (principal) | CPT/HCPCS: 76642 ==

== ENCOUNTER 2023-03-09 15:39 | Outpatient (REF) | payer MEDICAID, SELFPAY ==
--- NOTE | ~2023-03-09 | US_ITS ---
EXAMINATION: US DIAGNOSTIC ULTRASOUND BREAST, RIGHT CLINICAL INFORMATION: Patient feels palpable ridge of tissue in the 11:00 axis right breast extending toward nipple with associated pain. COMPARISON: Correlation is made with recent diagnostic mammography dated 03/01/2023. TECHNIQUE: Ultrasound of the right breast is performed with real-time shrestha scale imaging and color Doppler. Attention was paid to the 10-1 o'clock axis in the region of the patient's symptomatology. FINDINGS: There is no solid mass, architectural abnormality, duct ectasia, or edema in the soft tissue planes. There is extensive fibrocystic change in this region spanning the 10-11 o'clock axis, 1 cm from the nipple, with numerous small cysts and surrounding dense fibrous stroma. The largest cyst measures approximately 1.8 cm in diameter. This is undoubtedly with the patient is feeling and is benign. There are no suspicious abnormalities. Results were discussed with the patient at time of visit. US/US breast RT limited mamm only IMPRESSION: Palpable abnormality right breast 10-11 o'clock axis, periareolar, corresponds to extensive fibrocystic change and is benign. There are no findings suspicious for malignancy. Recommend the patient return to routine annual screening to include both breasts. ASSESSMENT: BI-RADS 2: Benign RECOMMENDATION: Routine annual mammography screening. This patient's information was entered into a reminder system with a target due date for their next mammogram.
== END 2023-03-09 15:40 | disposition home or self-care (01) ==
LOC: HO.MAMMO 15:39
PROVIDERS: PCP Student in an Organized Health Care Education/Training Program; Visit Provider Advanced Practice Midwife
DX: N64.4 Mastodynia (principal)
CPT/HCPCS: 76642

== ENCOUNTER 2023-03-15 14:12 | Outpatient (REF) | payer MEDICAID, SELFPAY ==
--- NOTE | ~2023-03-15 | US_ITS ---
EXAMINATION: US PELVIS COMPLETE CLINICAL INFORMATION: Postmenopausal bleeding. COMPARISON: Pelvic ultrasound dated 08/25/2009. TECHNIQUE: Transabdominal imaging was performed. FINDINGS: The uterus is of normal size and echogenicity, measuring 9.8 x 4.4 x 5.0 cm. The endometrial stripe is poorly visualized. FIBROIDS: There is 1 fibroid seen. 1. Location: Fundus, myometrial. Size: 5.0 x 4.0 x 4.5 cm. Prior: Maximal diameter of 4.2 cm. Fibroid characteristics: Heterogeneous echotexture. Right ovary is normal in size and echotexture, measuring 1.9 x 1.3 x 1.5 cm for a volume of 2.5 mL. The left ovary is not identified. There is no pelvic free fluid. No adnexal mass is seen. US/US pelvic and transvaginal IMPRESSION: 1. A uterine fundal fibroid is redemonstrated, with dimensions as detailed. 2. The endometrial stripe is not visualized. 3. The left ovary is not visualized.
== END 2023-03-15 14:13 | disposition home or self-care (01) ==
LOC: HO.US 14:12
PROVIDERS: PCP Student in an Organized Health Care Education/Training Program; Visit Provider Advanced Practice Midwife
DX: N95.0 Postmenopausal bleeding (principal)
CPT/HCPCS: 76830; 76856

== ENCOUNTER 2023-06-22 22:51 | Emergency (ER) | payer MEDICAID, SELFPAY ==
--- NOTE | ~2023-06-22 | CT_ITS ---
EXAMINATION: NONCONTRAST HEAD CT NONCONTRAST CERVICAL SPINE CT INDICATION INFORMATION: Trauma COMPARISON: None TECHNIQUE: Separate noncontrast CT examinations of the head and cervical spine were performed. Coronal and sagittal images were created for each examination at the technologist workstation. This CT examination was performed using dose optimization techniques as appropriate, variously including the following: *Automated exposure control *Adjustment of mA and/or kV according to patient size (this includes techniques or standardized protocols for targeted exams where dose is matched to indication/reason for exam; i.e. extremities or head) *Use of iterative reconstruction technique DLP: 1259 mGy-cm FINDINGS: Head: There is no evidence of acute intracranial hemorrhage or territorial infarction. No abnormal mass effect or midline shift is seen. Solorzano to white matter differentiation is well preserved. No extra-axial fluid collections are identified. No hydrocephalus. No significant volume loss. There is no abnormal attenuation within the brain parenchyma. No acute osseous or soft tissue abnormality. The mastoid air cells and visualized portions of the paranasal sinuses are well aerated. Cervical spine: There is anatomic alignment of the vertebral bodies and posterior elements. The atlantoaxial and atlantooccipital articulations are intact. Vertebral body heights are maintained. Disc space narrowing and small endplate osteophytes at C5-C6 and C6-C7. No significant central canal stenosis or foraminal narrowing. No evidence of acute fracture. No prevertebral soft tissue swelling. Visualized portions of the lung apices are unremarkable. The thyroid gland is unremarkable. CT/CT cervical spine wo IV con IMPRESSION: No acute intracranial bleed or territorial infarction. No acute fractures of the calvarium or cervical spine.
[2023-06-22 23:04] VITALS: BP 124/72; BP 124/82; PULSE 91; PULSE 97; RESP 20; TEMP 36.3; O2SAT 93; O2SAT 97; BMI 47.9
--- NOTE | 2023-06-22 23:37 | ED.FALL ---
HPI - Fall General Chief Complaint: Fall Stated Complaint: fall Time Seen by Provider: 06/22/23 23:13 Source: patient and old records reviewed Mode of arrival: EMS Limitations: no limitations History of Present Illness HPI Narrative: 58 yo female with PMH of GERD not on AC therapy was out drinking and did smoke some THC - fell and hit head but no LOC tried to catch herself and scratched R hand. at baseline no vomiting. Has scrapes on face as well. MD complaint: fall Onset (ago): minute(s) ([employer]) Fall from: standing Fall witnessed: yes, by family Place fall occurred: home Loss of consciousness: none Prolonged down time: no Symptoms prior to fall: none Context: tripped/slipped Location of injury: head and face Location of injury - extremities: right: hand Severity: mild Quality: aching Associated symptoms (after fall): headache Related Data Home Medications Medication Instructions Recorded Confirmed albuterol sulfate 90 mcg/actuation 2 puff inhalation Q4-6H PRN 06/01/20 06/11/20 aerosol inhaler (ProAir HFA) Shortness Of Breath Or Wheezing ferrous sulfate 325 mg (65 mg 325 mg PO DAILY 06/01/20 06/11/20 iron) tablet (iron) fluticasone propionate 110 1 puff inhalation Q12H 06/01/20 06/11/20 mcg/actuation HFA aerosol inhaler loratadine 10 mg tablet 10 mg PO DAILY 06/01/20 06/11/20 losartan 25 mg tablet 25 mg PO DAILY 06/01/20 06/11/20 omeprazole 20 mg tablet,delayed 20 mg PO BID 06/01/20 06/11/20 release Previous Rx's Medication Instructions Recorded acetaminophen 500 mg tablet 500 mg PO Q6H PRN pain or fever 11/11/20 (Tylenol Extra Strength) #20 tabs lidocaine 5 % topical patch 1 patch topical DAILY PRN pain #30 11/11/20 (Lidoderm) ea naproxen 500 mg tablet 500 mg PO BID PRN pain 10 days #20 11/11/20 tabs Allergies Allergy/AdvReac Type Severity Reaction Status Date / Time No Known Allergies Allergy Mild NOT Verified 11/11/20 13:49 APPLICABLE Review of Systems Review of Systems: Constitutional : No Fever, No Chills, No Fatigue ENT/Mouth : No sore throat, No Rhinorrhea Eyes: No Eye Pain, No Swelling, No Redness Cardiovascular : No Chest Pain, No SOB, No Dyspnea on Exertion Respiratory : No Cough, No Sputum Gastrointestinal : No Nausea, No Vomiting, No Diarrhea, No abdominal Pain Genitourinary : No Dysuria, No Urinary Frequency, No Hematuria, Musculoskeletal : No joint pain, No Myalgias, No Joint Swelling Skin : No Skin Lesions, No rash, pos abrasion Neuro : No Weakness, No Numbness, No Dizziness, positive Headache Psych : No Anxiety/Panic, No Depression All other systems reviewed and are negative [facility] Past Medical History Attestation statement: The following information was validated with the patient. Medical History Constipation Anemia Hx of renal calculi Hx of alopecia GERD (gastroesophageal reflux disease) Anxiety Asthma Surgical History Hx of section Hx of foot surgery Social History Social History Alcohol intake: current Alcohol intake frequency: holidays/special occasions only Alcohol type: hard liquor Smoked in Last 30 Days: No Substance Use Type: Marijuana Substance Use Frequency: Socially Last Used Substance: Hours (ago) Any prior treatment program specific to substance use: No Advance Directives: No Advance Directives Information Provided: Yes Patient : No Physical Exam Vital Signs: Vital Signs: Last Vital Signs Temp 97.4 F 06/22/23 23:04 Pulse 91 06/22/23 23:04 Resp 20 06/22/23 23:04 BP 124/72 06/22/23 23:04 Pulse Ox 93 06/22/23 23:04 O2 Del Method Room Air 06/22/23 23:04 BMI result Body Mass Index 47.9 Appearance: Alert. Oriented X3. No acute distress. Eyes: Pupils equal, round and reactive to light. ENT: Pharynx normal. abrasions on face forehead, nose, upper lip area teeth normal no nasal septal hematoma no raccoon or loco sign no hemotympanum Neck: Normal inspection. Neck supple. no midline ttp CVS: Normal heart rate and rhythm. Pulses normal. Respiratory: No respiratory distress. Breath sounds normal. Abdomen: Soft and nontender. Skin: Skin warm and dry. Normal skin color. Normal skin turgor. Extremities: No lower extremity edema. No calf ttp Neuro: Oriented X 3. No motor deficit. No sensory deficit. CN2-12 intact, GCS 15 Course Course Course Narrative: 2 hrs post accident GCS 15 Medical Decision Making Medical Decision Making [facility] Narrative: 58 yo female trip and fall after ETOH no thinners at this time will need CT scan of head and neck - GCS 15 not toxic, no bony crepitus to palpitation, no septal hematoma no raccoon or loco sign no hemotympanum - not toxic. Differential Diagnosis Differential Diagnoses: The differential diagnosis associated with the presentation includes abrasions, trauma, full ROM of motion of R hand and no bony ttp dout fracture Admission/Observation Consideration of admission/observation: Escalation of care including admission/observation considered GCS 15 no vomiting, obs stable for DC Independent Interpretation I performed an independent interpretation of an: CT Scan (no trauma) Radiology Impression Discussion of test interpretation with radiology: I have reviewed the radiologist's reading. Independent Historian Clinical information obtained from an independent historian. History obtained from or confirmed by: Other (family ) External Record Review External record reviewed: Office record Discharge Plan Discharge Clinical Impression: Abrasion Head injury Qualifiers: Encounter type: initial encounter Qualified Code(s): S09.90XA - Unspecified injury of head, initial encounter Hand injury Qualifiers: Encounter type: initial encounter Laterality: right Qualified Code(s): S69.91XA - Unspecified injury of right wrist, hand and finger(s), initial encounter Patient Disposition: Home, Self-Care Instructions: Head Injury (ED), Abrasion (ED) Additional Instructions: return for worsening headaches, confusion, vomiting, monitor abrasions for redness, yellow drainage, fevers or any other signs of infection apply bacitracin to wounds every day twice a day for one week. Regrese si los mayo de yu empeoran, confusi?n, v?mitos, controle las abrasiones en busca de enrojecimiento, secreci?n amarilla, fiebre o cualquier otro signo de infecci?n. aplique bacitracina a las heridas todos los d?as dos veces al d?a charley juan francisco semana. Prescriptions: No Action losartan 25 mg Tablet 25 mg PO DAILY albuterol sulfate [ProAir HFA] 90 mcg/actuation Hfa Aerosol Inhaler 2 puff INHALATION Q4-6H PRN (Reason: Shortness Of Breath Or Wheezing) loratadine 10 mg Tablet 10 mg PO DAILY Flovent 110 mcg/actuation Hfa Aerosol Inhaler 1 puff INHALATION Q12H omeprazole 20 mg Tablet,Delayed Release (Dr/Ec) 20 mg PO BID ferrous sulfate [iron] 325 mg (65 mg iron) Tablet 325 mg PO DAILY acetaminophen [Tylenol Extra Strength] 500 mg tablet 500 mg PO Q6H PRN (Reason: pain or fever) Qty: 20 0RF lidocaine [Lidoderm] 5 % adhesive patch,medicated 1 patch topical DAILY MDD remove after 12 hours PRN (Reason: pain) Qty: 30 0RF Rx Instructions: leave on most painful area for up to 12 hrs naproxen 500 mg tablet 500 mg PO BID PRN (Reason: pain) 10 Days Qty: 20 0RF Print Language: Tristanian
[2023-06-23 00:52] VITALS: BP 133/82; PULSE 73; RESP 18; TEMP 36.7; O2SAT 95
== END 2023-06-23 01:05 | disposition home or self-care (01) ==
PROVIDERS: Emergency Provider Emergency Medicine; PCP Student in an Organized Health Care Education/Training Program
DX: S09.90XA Unspecified injury of head, initial encounter (principal); S69.91XA Unspecified injury of right wrist, hand and finger(s), initial encounter; S00.81XA Abrasion of other part of head, initial encounter; M54.2 Cervicalgia; R51.9 Headache, unspecified; F12.90 Cannabis use, unspecified, uncomplicated; W01.10XA Fall on same level from slipping, tripping and stumbling with subsequent striking against unspecified object, initial encounter; Y93.9 Activity, unspecified; Y92.9 Unspecified place or not applicable; Y99.9 Unspecified external cause status
CPT/HCPCS: 70450; 72125; 99284

== ENCOUNTER 2023-08-28 14:58 | Outpatient (AMB) | payer MEDICAID, SELFPAY ==
--- NOTE | 2023-08-28 15:01 | A.OFFVIS_ITS ---
Intake Vital Signs 08/28/23 15:18 Height 5 ft 5 in Weight 238 lb BMI 39.6 BP 139/90 H Blood Pressure Location Lt brachial Position Sitting Pulse 95 Intake Visit Reasons: Colonoscopy Screening Intake Note: Patient is seen in office for colonoscopy screening. Pt c/o:pt here for screening [employer] Messenger Required: No Accompanied by: Self / Same As Patient Allergies No Known Allergies Allergy (Mild, Verified 08/28/23 15:17) NOT APPLICABLE Medication List - Last Reconciled 08/28/23 by Carolee Hanson PA-C acetaminophen (Tylenol Extra Strength) 500 mg PO Q6H PRN albuterol sulfate 90 mcg/actuation (ProAir HFA) 2 puffs inhalation Q4-6H PRN ferrous sulfate (iron) 325 mg PO DAILY fluticasone propionate 110 mcg/actuation 1 puff inhalation Q12H lidocaine 5% (Lidoderm) 1 patch topical DAILY PRN MDD remove after 12 hours loratadine 10 mg PO DAILY losartan 25 mg PO DAILY naproxen 500 mg PO BID PRN 10 days omeprazole 20 mg PO BID HPI HPI Comments History of Present Illness Details A 58-year-old female personal history of colon polyps due for repeat colonoscopy She has no GI complaints She has good appetite acid reflux well-controlled with omeprazole and dietary modifications Bowels are normal No nausea, vomiting, hematemesis, hematochezia fever chills PFSH Medical History Constipation Anemia Hx of renal calculi Hx of alopecia GERD (gastroesophageal reflux disease) Anxiety Asthma Surgical History Hx of section Hx of foot surgery Social History Alcohol intake: current Alcohol intake frequency: holidays/special occasions only Alcohol type: hard liquor Patient Tobacco Use Status: Never used Tobacco Substance Use Type: Marijuana Current occupational status: unemployed Review of Systems Const Details: All systems reviewed and are negative Physical Exam Vital Signs: Last Vital Signs Pulse 95 08/28/23 15:18 BP 139/90 H 08/28/23 15:18 BMI result Body Mass Index 39.6 Const General: cooperative, healthy appearing and comfortable Orientation/consciousness: patient oriented x3 Limitations: language barrier Eyes Sclerae: sclerae normal Resp Effort & Inspection: normal respiratory effort and able to speak in complete sentences Auscultation: clear to auscultation bilaterally, no rales, no rhonchi and no wheezes Cardio Rate: regular rate Rhythm: regular rhythm Heart sounds: S1 normal heart sound present and S2 normal heart sound present GI Palpation (GI): Soft to palpation and nontender Auscultation: normal bowel sounds Skin General skin exam: no rashes or lesions noted Neuro General: patient oriented x3 Extrem General: Yes full ROM Psych Appearance: grossly normal and well kempt Mental Status: mental status grossly normal Speech and movement: Clear speech present Affect: normal affect Attitude: cooperative Thought process: Normal thought process present Thought content: Normal thought content present Assessment & Plan Assessment & Plan (1) Tubular adenoma: Comment: 2019- tubular adenoma, due for polyp surveillance colonoscopy First-degree relatives should be screened starting at age 40 Code(s): D36.9 - Benign neoplasm, unspecified site (2) Acid reflux: Comment: Continue omeprazole 20 mg daily, avoid culprits. alcohol in moderation Code(s): K21.9 - Gastro-esophageal reflux disease without esophagitis Plan Reflux precautions reviewed Continue usual medication Polyp surveillance colonoscopy MiraLax Gatorade prep Needs hourly sign language interpreter Orders: Orders Colonoscopy - GI Use Only 08/28/23 D36.9 - Benign neoplasm, unspecified site Medications: New bisacodyl (Dulcolax (bisacodyl)) Day before procedure @ 12 noon Take 4 tablets by mouth followed by large glass of water 20 mg (4 x 5 mg) PO ONCE PRN 4 tabs 0RF colonoscopy prep 1 day Z12.11 - Encounter for screening for malignant neoplasm of colon polyethylene glycol 3350 (Miralax) Take as directed by mouth the day before your procedure. 238 grams PO ONCE PRN 238 grams 0RF laxative effect 1 day Patient Instructions: Polyp surveillance colonoscopy Reviewed procedure, rare risks need for escorted MiraLax Gatorade prep, reviewed literature Reflux precautions reviewed Continue PPI avoid culprits Encouraged to call questions or concerns Appreciate the opportunity assist in the care the patient Coding Level of Care Code Est Pt Level 3 (14834) Diagnoses Tubular adenoma D36.9 Acid reflux K21.9 Time Spent (min) 30 Comment [employer]ored [employer] Messenger
--- NOTE | 2023-08-28 15:02 | MHC.OFFVIS ---
Intake Vital Signs 08/28/23 15:18 Height 5 ft 5 in Weight 238 lb BMI 39.6 BP 139/90 H Blood Pressure Location Lt brachial Position Sitting Pulse 95 Intake Visit Reasons: Colonoscopy Screening Allergies No Known Allergies Allergy (Mild, Verified 08/28/23 15:17) NOT APPLICABLE Medication List - Last Reconciled 08/28/23 by Carolee Hanson PA-C acetaminophen (Tylenol Extra Strength) 500 mg PO Q6H PRN albuterol sulfate 90 mcg/actuation (ProAir HFA) 2 puffs inhalation Q4-6H PRN ferrous sulfate (iron) 325 mg PO DAILY fluticasone propionate 110 mcg/actuation 1 puff inhalation Q12H lidocaine 5% (Lidoderm) 1 patch topical DAILY PRN MDD remove after 12 hours loratadine 10 mg PO DAILY losartan 25 mg PO DAILY naproxen 500 mg PO BID PRN 10 days omeprazole 20 mg PO BID HPI HPI Comments History of Present Illness Details A 58 y/o female hx adenoma- 2019- Dr. Jasso-EGD and colonoscopy- for anemia- She f/u w/ pcp- iron supplements- She has no GI complaints Appetite is good-acid reflux well controlled with omeprazole and dietary modifications Bowels have been normal-she has not had issues constipation with iron supplement No nausea, vomiting, hematemesis, hematochezia fever chills PFSH Medical History Constipation Anemia Hx of renal calculi Hx of alopecia GERD (gastroesophageal reflux disease) Anxiety Asthma Surgical History Hx of section Hx of foot surgery Social History Alcohol intake: current Alcohol intake frequency: holidays/special occasions only Alcohol type: hard liquor Patient Tobacco Use Status: Never used Tobacco Substance Use Type: Marijuana Current occupational status: unemployed Review of Systems Const All systems reviewed & are unremarkable except as noted in HPI and below Card Denies chest pain and Denies dyspnea Resp Denies dyspnea GI Denies abdominal pain, Denies hematochezia, Denies diarrhea, Denies nausea and Denies vomiting Physical Exam Vital Signs: Last Vital Signs Pulse 95 08/28/23 15:18 BP 139/90 H 08/28/23 15:18 BMI result Body Mass Index 39.6 Const General: cooperative, healthy appearing and comfortable Orientation/consciousness: patient oriented x3 Limitations: no limitations Eyes Sclerae: sclerae normal Resp Effort & Inspection: normal respiratory effort and able to speak in complete sentences Auscultation: clear to auscultation bilaterally, no rales, no rhonchi and no wheezes GI Palpation (GI): Soft to palpation and nontender Auscultation: normal bowel sounds Skin General skin exam: no rashes or lesions noted Neuro General: patient oriented x3 Extrem General: Yes full ROM Psych Appearance: grossly normal and well kempt Mental Status: mental status grossly normal Speech and movement: Normal speech and movement present and Clear speech present Affect: normal affect Attitude: cooperative Thought process: Normal thought process present Results Reviewed Results Reviewed: 06/2020- [place] Impression and Post Procedure Diagnosis: Endoscopy Findings: gastritis hiatal hernia Colonoscopy Findings: polyps internal hemorrhoids Plan: Await Pathology results Repeat Colonoscopy in 3-5 years if adenomatous polyps or earlier if clinically indicated, otherwise repeat 10 years if benign High fiber diet leaflet avoid straining at stool, epsom salts and sitz bath, anusol supps or cream prn if anemia persists or worsens and bx neg then capsule endoscopy Above findings were reviewed with the patient and relevant handouts were provided if indicated. mago: Naomi Steele I Specimen #: [id number] Age/Sex: 54/F Attending: Brijesh Jasso MD : 1965 Submitted by: Brijesh Jasso MD Collected: 06/04/20 MR #: [id number] Received: 06/04/20 Status: [facility] Diagnosis A. Duodenum, biopsy: Duodenal mucosa within normal limits. B. Stomach, biopsy: Oxyntic mucosa with mild chronic inactive inflammation; no Helicobacter organisms seen. C. Esophagus, random, biopsy: Squamous epithelium within normal limits; no inflammation seen. D. Colon, sigmoid, biopsy: Clinically polypoid colonic mucosa within normal limits. E. Colon, sigmoid, biopsy #2: Tubular adenoma; no high grade dysplasia or carcinoma seen. Clinical History Pre-Op Dx: Anemia Post-Op Dx: Gastritis, hiatal hernia, hemorrhoids and polyps Assessment & Plan Assessment & Plan (1) Tubular adenoma: Comment: 2019- tubular adenoma, due for polyp surveillance colonoscopy First-degree relatives should be screened starting at age 40 Code(s): D36.9 - Benign neoplasm, unspecified site Plan Colonoscopy- - established MG prep Orders: Orders Colonoscopy - GI Use Only 08/28/23 D36.9 - Benign neoplasm, unspecified site Medications: New bisacodyl (Dulcolax (bisacodyl)) Day before procedure @ 12 noon Take 4 tablets by mouth followed by large glass of water 20 mg (4 x 5 mg) PO ONCE 1 day PRN 4 tabs 0RF colonoscopy prep Z12.11 - Encounter for screening for malignant neoplasm of colon polyethylene glycol 3350 (Miralax) Take as directed by mouth the day before your procedure. 238 grams PO ONCE 1 day PRN 238 grams 0RF laxative effect Patient Instructions: Pleasant 58-year-old female personal history colon adenoma here for scheduling of polyp surveillance colonoscopy Reviewed procedure, rare risks need for escort MiraLax Gatorade prep, reviewed,, literature given Encouraged to call questions or concerns Coding Level of Care Code Est Pt Level 3 (89094) Diagnoses Tubular adenoma D36.9 Time Spent (min) 25
[2023-08-28 15:18] VITALS: BP 139/90; PULSE 95; BMI 39.6
== END 2023-08-28 15:33 | disposition home or self-care (01) ==
PROVIDERS: PCP Student in an Organized Health Care Education/Training Program; Visit Provider Physician Assistant
DX: D36.9 Benign neoplasm, unspecified site (principal); K21.9 Gastro-esophageal reflux disease without esophagitis
CPT/HCPCS: 99213

== ENCOUNTER → 2023-08-28 14:58 | Outpatient (BNVA) | payer MEDICAID, SELFPAY | PROVIDERS: PCP Student in an Organized Health Care Education/Training Program; Visit Provider Physician Assistant | DX: D36.9 Benign neoplasm, unspecified site (principal) | CPT/HCPCS: 99212 ==

== ENCOUNTER 2023-10-12 13:21 | Outpatient (REF) | payer MEDICAID, SELFPAY ==
--- NOTE | ~2023-10-12 | XR_ITS ---
EXAMINATION: XR BILATERAL KNEES CLINICAL INFORMATION: Bilateral knee pain. Patient states chronic right knee pain and right knee hurts the most. Chronic right knee pain and swelling. COMPARISON: None available. TECHNIQUE: AP and lateral views of the left knee. AP, lateral and sunrise views of the right knee. FINDINGS: LEFT KNEE: No significant joint effusion. Mild narrowing of the medial compartment with tiny marginal osteophytes. RIGHT KNEE: Small joint effusion. Mild narrowing of the medial compartment. Tiny medial marginal and posterior patellar osteophytes. XR/XR knee RT 3V IMPRESSION: Mild degenerative changes in the bilateral knees.
--- NOTE | ~2023-10-12 | XR_ITS ---
EXAMINATION: XR BILATERAL KNEES CLINICAL INFORMATION: Bilateral knee pain. Patient states chronic right knee pain and right knee hurts the most. Chronic right knee pain and swelling. COMPARISON: None available. TECHNIQUE: AP and lateral views of the left knee. AP, lateral and sunrise views of the right knee. FINDINGS: LEFT KNEE: No significant joint effusion. Mild narrowing of the medial compartment with tiny marginal osteophytes. RIGHT KNEE: Small joint effusion. Mild narrowing of the medial compartment. Tiny medial marginal and posterior patellar osteophytes. XR/XR knee LT 2V IMPRESSION: Mild degenerative changes in the bilateral knees.
== END 2023-10-12 13:22 | disposition home or self-care (01) ==
LOC: HO.XRAY 13:21
PROVIDERS: PCP Student in an Organized Health Care Education/Training Program; Visit Provider Pediatrics
DX: M25.561 Pain in right knee (principal); M25.562 Pain in left knee; G89.29 Other chronic pain
CPT/HCPCS: 73560; 73562

== ENCOUNTER 2023-11-07 10:36 | Emergency (ER) | payer MEDICAID, SELFPAY ==
[2023-11-07 10:55] VITALS: BP 156/83; BP 180/70; PULSE 120; PULSE 140; RESP 16; TEMP 36.6; O2SAT 100; O2SAT 99; BMI 40.0
--- NOTE | 2023-11-07 11:36 | ED.SYNCOPE ---
HPI - Syncope General Chief Complaint: Dizziness Stated Complaint: SYNCOPAL EPISODE DIZZY Time Seen by Provider: 11/07/23 11:07 Source: patient, EMS, RN notes reviewed, old records reviewed and fur cleaner (greek) Mode of arrival: EMS Limitations: language barrier History of Present Illness HPI narrative: 58 year old female with pmhx significant for constipation, GERD, anxiety, asthma, anemia, and vasovagal syncope presents to the ED today via EMS for evaluation following syncopal episode prior to arrival. Patient states that while she was at the [facility], she had a syncopal episode while receiving a corticosteroid injection in her right knee. She did not fall to the ground. Denies head strike. The clinic staff had her smell ammonia to wake up. Admits that this happens every time she sees a needle. Denies preceding symptoms. Upon arrival to the ED, she does not have any complaints or concerns. She states that she is feeling well and would like to go home. She does not want further workup at this time. Denies diaphoresis, fevers, headache, dizziness, chest pain, sob, dyspnea, cough, hemoptysis, calf pain/swelling. Denies recent travel or long car rides. transcript evaluator utilized throughout visit to communicate with patient. Related Data Home Medications ?Medication ?Instructions ?Recorded ?Confirmed albuterol sulfate 90 mcg/actuation 2 puff inhalation Q4-6H PRN 06/01/20 06/11/20 aerosol inhaler (ProAir HFA) Shortness Of Breath Or Wheezing ferrous sulfate 325 mg (65 mg 325 mg PO DAILY 06/01/20 06/11/20 iron) tablet (iron) fluticasone propionate 110 1 puff inhalation Q12H 06/01/20 06/11/20 mcg/actuation HFA aerosol inhaler loratadine 10 mg tablet 10 mg PO DAILY 06/01/20 06/11/20 losartan 25 mg tablet 25 mg PO DAILY 06/01/20 06/11/20 omeprazole 20 mg tablet,delayed 20 mg PO BID 06/01/20 06/11/20 release Previous Rx's ?Medication ?Instructions ?Recorded acetaminophen 500 mg tablet 500 mg PO Q6H PRN pain or fever 11/11/20 (Tylenol Extra Strength) #20 tabs lidocaine 5 % topical patch 1 patch topical DAILY PRN pain #30 11/11/20 (Lidoderm) ea naproxen 500 mg tablet 500 mg PO BID PRN pain 10 days #20 11/11/20 tabs bisacodyl 5 mg tablet,delayed 20 mg (4 x 5 mg) PO ONCE PRN 08/28/23 release (Dulcolax (bisacodyl)) colonoscopy prep 1 day #4 tabs polyethylene glycol 3350 17 238 g PO ONCE PRN laxative effect 08/28/23 gram/dose oral powder (Miralax) 1 day #238 grams Allergies Allergy/AdvReac Type Severity Reaction Status Date / Time No Known Allergies Allergy Mild NOT Verified 11/07/23 10:56 APPLICABLE Review of Systems Review of Systems: Constitutional: No fever, chills, fatigue, night sweats, weight changes ENT/Mouth: No ear pain, hearing loss, nasal congestion, sinus pain, rhinorrhea, sore throat Eyes: No eye pain, swelling, redness, vision changes, discharge Cardio: No chest pain, palpitations, NOVAK, orthopnea, peripheral edema Pulm: No SOB, cough, sputum, wheezing, dyspnea, hemoptysis GI: No nausea, vomiting, hematemesis, abdominal pain, diarrhea, constipation, hematochezia, melena : No irregular bleeding, dysuria, frequency, urgency, hesitancy, hematuria, flank pain, urinary flow changes, urinary incontinence or retention MSK: No back pain, neck pain, joint pain, myalgias Skin: No lesions, rashes Neuro: No weakness, numbness, paresthesias, LOC, dizziness, headache Psych: No anxiety/panic, depression, SI/HI, AH/VH All other systems reviewed and are negative. [facility] Past Medical History Attestation statement: The following information was validated with the patient. Source: old records reviewed and nursing notes reviewed Medical History Constipation Anemia Hx of renal calculi Hx of alopecia GERD (gastroesophageal reflux disease) Anxiety Asthma Surgical History Hx of section Hx of foot surgery Social History Social History Alcohol intake: current Alcohol intake frequency: holidays/special occasions only Alcohol type: hard liquor Patient Tobacco Use Status: Never used Tobacco Smoked in Last 30 Days: No Use of substances other than those prescribed or required for medical reasons: No Substance Use Type: Marijuana Advance Directives: No Advance Directives Information Provided: No Current occupational status: unemployed Physical Exam Vital Signs: Vital Signs: Last Vital Signs Temp 98.1 F 11/07/23 12:20 Pulse 85 11/07/23 12:20 Resp 18 11/07/23 12:20 BP 133/78 11/07/23 12:20 Pulse Ox 98 11/07/23 12:20 O2 Del Method Room Air 11/07/23 12:20 BMI result Body Mass Index 40.0 Initially tachycardic, now vitals WNL. Const: General: cooperative, healthy appearing, comfortable and no acute distress Orientation/consciousness: patient oriented x3 Limitations: no limitations HEENT: Head: Yes normal to inspection, Yes No palpable skull fracture present, Yes normocephalic and Yes atraumatic Eyes: General: appearance normal, both eyes and all related structures Conjunctivae: conjunctivae normal Sclerae: sclerae normal Pupils: Equal, round and reactive pupils present Direct Ophthalmoscopy: normal light reflex, no photophobia and no papilledema Neck: Neck: Yes normal visual inspection, Yes full ROM, Yes no lymphadenopathy, Yes no meningeal signs and Yes no JVD Chest: Chest palpation & inspection: normal inspection of the chest Resp: Effort & Inspection: normal respiratory effort and able to speak in complete sentences Auscultation: clear to auscultation bilaterally Cardio: Jugular venous distension: no JVD Rate: regular rate Rhythm: regular rhythm GI: Inspection: Yes normal to inspection and Yes obesity Palpation (GI): Soft to palpation and nontender Skin: General skin exam: no rashes or lesions noted Neuro: General: patient oriented x3, gait normal and no meningeal signs Cranial nerves: Yes Equal, round and reactive pupils present Gait exam (Neuro): Normal gait present Motor exam (neuro): 5/5 motor strength present throughout and Pronator motor function not present Coordination: [id number] test normal, [id number] test normal and Romberg test negative Pupils: Normal pupillary reactivity/response: bilateral Extrem: General: Yes normal to inspection and Yes full ROM Course Course Course Narrative: 1154--patient ambulating with steady gait during ambulation trial. Continues to deny symptoms of diaphoresis, dizziness, vision changes, chest pain, palpitations, shortness of breath. She states that she feels fine and would like to go home. She continues to decline lab workup at this time. Given patient's history of vasovagal syncope and the fact that she is asymptomatic, I feel comfortable discharging patient home. I have extremely low suspicion for pulmonary embolism, ACS, arrhythmia. Discussed strict return precautions. Both patient and her family at bedside verbalize understanding. Patient has remained stable throughout ED visit today. Discussed worrisome signs and symptoms and when to return to the ED. All questions answered at this time. Patient is agreeable with disposition and stable for discharge. Medical Decision Making Medical Decision Making MDM Narrative: 58 year old female with pmhx significant for constipation, GERD, anxiety, asthma, anemia, and vasovagal syncope presents to the ED today via EMS for evaluation following syncopal episode prior to arrival. Patient initially hypertensive and tachycardic likely secondary to anxiety. Now normotensive. Pulse 85. Vitals otherwise WNL. She is nontoxic-appearing and in no acute distress. Exam nonfocal. PERRLA. Cerebellum intact. Ambulating with steady gait. No calf tenderness bilaterally. RRR. Lungs CTA bilaterally. Differential diagnosis includes vasovagal syncope, orthostatic hypotension. Unlikely PE, ACS, arrhythmia, CVA, TIA, ICH. Differential Diagnosis Differential Diagnoses: The differential diagnosis associated with the presentation includes as above. Admission/Observation not indicated Independent Historian Clinical information obtained from an independent historian. History obtained from or confirmed by: EMS External Record Review External record reviewed: Inpatient record, Office record, Outpatient record, Prior outpatient labs, Prior outpatient radiology, Primary care record and Outside ED record Social Determinants Patient?s care significantly limited by Social Determinants of Health including: Other Social Determinant of Health Critical Care Time Critical Care Time Critical Care Time: No Discharge Plan Discharge Clinical Impression: Vasovagal response Patient Disposition: Home, Self-Care Instructions: Syncope (ED) Additional Instructions: You are declining lab work today. Please follow up with pcp. As discussed, please return with new or worsening symptoms. In the case of an emergency, call 911. Prescriptions: No Action losartan 25 mg Tablet 25 mg PO DAILY albuterol sulfate [ProAir HFA] 90 mcg/actuation Hfa Aerosol Inhaler 2 puff INHALATION Q4-6H PRN (Reason: Shortness Of Breath Or Wheezing) loratadine 10 mg Tablet 10 mg PO DAILY Flovent 110 mcg/actuation Hfa Aerosol Inhaler 1 puff INHALATION Q12H omeprazole 20 mg Tablet,Delayed Release (Dr/Ec) 20 mg PO BID ferrous sulfate [iron] 325 mg (65 mg iron) Tablet 325 mg PO DAILY acetaminophen [Tylenol Extra Strength] 500 mg tablet 500 mg PO Q6H PRN (Reason: pain or fever) Qty: 20 0RF lidocaine [Lidoderm] 5 % adhesive patch,medicated 1 patch topical DAILY MDD remove after 12 hours PRN (Reason: pain) Qty: 30 0RF Rx Instructions: leave on most painful area for up to 12 hrs naproxen 500 mg tablet 500 mg PO BID PRN (Reason: pain) 10 Days Qty: 20 0RF bisacodyl [Dulcolax (bisacodyl)] 5 mg tablet,delayed release (DR/EC) 20 mg PO ONCE PRN (Reason: colonoscopy prep) 1 Days Qty: 4 0RF Rx Instructions: Day before procedure @ 12 noon Take 4 tablets by mouth followed by large glass of water polyethylene glycol 3350 [Miralax] 17 gram/dose powder 238 g PO ONCE PRN (Reason: laxative effect) 1 Days Qty: 238 0RF Rx Instructions: Take as directed by mouth the day before your procedure. Referrals: Lindsay Serrano MD [Primary Care Provider] - Interventions: ED Discharge Assessment Last Done: 11/07/23 12:20 Discharge Date/Time: 11/07/23 12:23 Print Language: Bahraini
[2023-11-07 12:02] VITALS: PULSE 85
--- NOTE | 2023-11-07 12:10 | PC.NURSE ---
Pt HONG, from [facility] after having a vaso-vagal response from getting a steroid injection in her knee. Pt is refusing lab work. Ambulates with a steady gait, speaks clear full sentences.
[2023-11-07 12:20] VITALS: BP 133/78; PULSE 85; RESP 18; TEMP 36.7; O2SAT 98
== END 2023-11-07 12:23 | disposition home or self-care (01) ==
PROVIDERS: Emergency Provider Emergency Medicine Emergency Medical Services; PCP Student in an Organized Health Care Education/Training Program
DX: R55 Syncope and collapse (principal)
CPT/HCPCS: 99283; 99284

== ENCOUNTER 2024-01-23 15:41 | Outpatient (REF) | payer MEDICAID, SELFPAY ==
--- NOTE | ~2024-01-23 | XR_ITS ---
EXAMINATION: XR HIP, RIGHT CLINICAL INFORMATION: Right hip pain for 2 weeks. COMPARISON: None available. TECHNIQUE: Two views of the right hip. FINDINGS: No fracture identified. Alignment is anatomic. Hip joint space is maintained. Soft tissues appear unremarkable. XR/XR hip RT min 2V IMPRESSION: Normal plain film examination of the right hip.
== END 2024-01-23 15:42 | disposition home or self-care (01) ==
LOC: HO.XRAY 15:41
PROVIDERS: PCP Student in an Organized Health Care Education/Training Program; Visit Provider Internal Medicine
DX: M25.551 Pain in right hip (principal)
CPT/HCPCS: 73502

== ENCOUNTER 2024-04-15 14:21 | Outpatient (REF) | payer MEDICAID, SELFPAY ==
--- NOTE | ~2024-04-15 | XR_ITS ---
EXAMINATION: XR LUMBAR SPINE 3 VIEWS CLINICAL INFORMATION: Low back pain. COMPARISON: XR Lumbar spine 06/25/2012 TECHNIQUE: Three views of the lumbosacral spine. FINDINGS: The vertebral bodies and posterior elements are normal. The disc spaces are preserved and the vertebral alignment is normal. The paraspinal soft tissues are normal. XR/XR lumbar spine 2-3V IMPRESSION: Unremarkable examination. Electronically signed by: Tamica Whyte MD 06/18/2024 08:14 AM MARY
== END 2024-04-15 14:22 | disposition home or self-care (01) ==
LOC: HO.XRAY 14:21
PROVIDERS: PCP Student in an Organized Health Care Education/Training Program; Visit Provider Internal Medicine
DX: M54.50 Low back pain, unspecified (principal); G89.29 Other chronic pain
CPT/HCPCS: 72100

== ENCOUNTER 2025-01-08 11:51 | Outpatient (REF) | payer MEDICAID, SELFPAY ==
--- OUTSIDE RECORDS SUMMARY | 2025-01-08 13:02 | XMS_ITS | Encounter Summary ---
Author Organization [employer] Address [address] [place] [address] Care Team Providers Care Yarn Skeins Examiner Name Role Phone Lindsay Serrano MD Primary Care Provider [phone] Reason for Visit * Reason Comments Med Refill Encounter Details Date Type Department Care Team ([facility] st Contact Info) Description 10/02/2023 Refill [facility] [address] [place], [place] [id number] Lindsay Serrano MD [address] [place], [place] [id number] Social History Tobacco Use Types Packs/Day Years Used Date Smoking Tobacco: Former Smokeless Tobacco: Never Alcohol Use Standard Drinks/Week Comments Defer 0 (1 standard drink = 0.6 oz pur e alcohol) Depression Answer Date Recorded Patient Health Questionnaire-9 Score 8 05/19/2023 Patient Health Questionnaire-9 Score 8 05/19/2023 Last PHQ-9: Questionnaire Data Not on file 1 07/19/2022 Housing Stability Answer Date Recorded What is your housing situation today? I have chantel alvarez 04/23/[address] you li ve. Do you have problems with any of the following? None of the above 04/23/2023 Food Insecurity Answer Date Recorded Within the past 12 months, y ou worried that your food would run out before you got money to buy more: Never True 04/23/2023 Within the past 12 months,th e food you bought just didn't last and you didn't have enough money to get more: Never True Transportation Answer Date Recorded In the past 12 months, has l ack of transportation kept you from medical appts, meetings, work or from getting things needed for daily living? No 04/23/2023 Utilities Answer Date Recorded In the past 12 months, has t he electric, gas, oil or water company threatened to shut off services in your home? No 04/23/2023 Depression Answer Date Recorded Patient Health Questionnaire-2 Score 4 05/19/2023 Comments No Sex and Gender Information Value Date Recorded Sex Assigned at Female 05/02/2022 10:16 AM EDT Legal Sex Female 10:16 AM EDT Gender Identity Female 05/02/2022 10:16 AM EDT Sexual Orientation Straight 05/02/2022 10 :16 AM EDT documented as of this encounter Plan of Treatment Not on file documented as of this encounter Visit Diagnoses Not on filedocumented in this encounter Additional Health Concerns Assessment Noted Time PHQ-9 Depression Total Score: 8 05/19/20 23 11:20 AM EST documented as of this encounter Care Teams Yarn Skeins Examiner Relationship Specialty Start Date End Date Lindsay Serrano MD [address] [place] [address] PCP - General Family Medicine 06/18/12 documented as of this encounter
[2025-01-08 16:36] LABS: Alanine Aminotransferase 15 U/L (0-31); Albumin Level 4.2 g/dL (3.5-5.0); Alkaline Phosphatase 79 U/L (39-117); Anion Gap 11 (12-20); Aspartate Amino Transferase 22 U/L (5-31); Blood Urea Nitrogen 9 mg/dL (9-16); Calcium 9.2 mg/dL (8.4-10.2); Carbon Dioxide 30 mmol/L (22-29); Chloride 104 mmol/L (96-108); Cholesterol 207 mg/dL (<200); Estimated Glomerular Filt Rate > 60; HDL Cholesterol 68 mg/dL (>40); Potassium 4.2 mmol/L (3.3-5.1); Sodium 141 mmol/L (135-145); Total Protein 7.4 g/dL (6.5-8.0); Triglycerides 108 mg/dL (<150)
== END 2025-01-08 11:52 | disposition home or self-care (01) ==
LOC: HO.CHCLDS 11:51
PROVIDERS: Visit Provider Student in an Organized Health Care Education/Training Program
DX: I10 Essential (primary) hypertension (principal)
CPT/HCPCS: 36415; 80048; 80061; 80076